=== PATIENT | male | born 1965 | race Two or more races ===

== ENCOUNTER 2016-12-17 18:24 | Emergency (ER) | payer MEDICAID, OTHER ==
[~2016-12-17] VITALS: Ht 167.6 cm; Wt 81.0 kg
[2016-12-17 18:37] VITALS: Ht 167.6 cm; Wt 81.0 kg
--- NOTE | 2016-12-17 19:45 | ERD ---
ER Documentation Chief Complaint Date/Time DATE: 12/17/16 TIME: 19:39 Chief Complaint throat pain x 3 days HPI This is a 51 year male presents to ER with sore throat x 3 days. No difficulty swallowing or drooling. No muffled voice. No cough. No nasal congestion or rhinitis. No fever or chills. No sick contacts. ROS All systems reviewed and are negative except as per history of present illness. Medications Home Meds Active Scripts Ibuprofen* (Motrin*) 400 Mg Tab, 400 MG PO Q6, #15 TAB Prov:DEREJE LIU Homer HERNANDEZ 12/17/16 Allergies Allergies: Coded Allergies: No Known Drug Allergy (Verified Allergy, Unknown, 04/08/09) PMhx/Soc History of Surgery: No Anesthesia Reaction: No Hx Neurological Disorder: No Hx Respiratory Disorders: No Hx Cardiac Disorders: No Hx Psychiatric Problems: No Hx Miscellaneous Medical Probl: No Hx Alcohol Use: No Hx Substance Use: No Hx Tobacco Use: No Smoking Status: Never smoker Physical Exam Vitals Vital Signs Date Time Temp Pulse Resp B/P Pulse Ox O2 Delivery O2 Flow Rate FiO2 12/17/16 21:38 97.5 51 18 165/77 98 Room Air 12/17/16 18:37 97.5 66 20 166/79 98 Physical Exam Const: No acute distress, alert Head: Atraumatic Eyes: Normal Conjunctiva ENT: Normal External Ears, Nose and Mouth. No erythema or exudate to posterior pharynx. TMs normal bilaterally. Neck: Full range of motion..~ No meningismus. Resp: Clear to auscultation bilaterally. No wheezing, rhonchi or crackles. No stridor or labored breathing. Cardio: Regular rate and rhythm, no murmurs Abd: Soft, non tender, non distended. Normal bowel sounds Skin: No petechiae or rashes Back: No midline or flank tenderness Ext: No cyanosis, or edema Neur: Awake and alert Psych: Normal Mood and Affect Procedures/MDM MDM: 51 year old male presents to ER with sore throat x 3 days. No exudate or erythema to posterior pharynx. No muffled voice. No difficulty swallowing or drooling. No fever or chills. No cough. Rapid strep swab is negative. No rashes or lesions Low suspicion for epiglottitis, strep pharyngitis, HSV or scarlet fever. Patient likely has viral pharyngitis. Patient is appropriate for outpatient management and will be given prescription for Ibuprofen 400 mg #15 and instructed to use warm salt water gargles for pain relief. Instructed patient to follow up with PCP in the next 2-3 days for reassessment. Return to ED for any new or worsening symptoms. Patient verbalizes understanding. All questions answered at discharge. Departure Diagnosis: Primary Impression: Sore throat Condition: Stable DEREJE LIU NP Dec 17, 2016 19:44
[2016-12-17] MEDS ORDERED: IBUP400T22 PO (21:21)
[2016-12-17 21:38] VITALS: BP 165/77; PULSE 51; RESP 18; TEMP 97.5
== END 2016-12-17 21:40 | disposition home or self-care (01) ==
LOC: FTE 18:24
DX: J02.9 Acute pharyngitis, unspecified (principal)
CPT/HCPCS: 87880; 99283

== ENCOUNTER 2017-01-09 06:47 | Day surgery (SDC) | payer MEDICAID, OTHER ==
[2017-01-09] VITALS (13 sets, daily range): BP systolic 139–166; BP diastolic 59–85; PULSE 55–80; RESP 11–24; Ht 175.3 cm; Wt 78.0 kg
[~2017-01-09] VITALS: Ht 175.3 cm; Wt 78.0 kg
[~2017-01-09 06:47] MED LIST: IBUP400T22 PO
[2017-01-09] MEDS ORDERED: BALANCED SALT SOLN 15 ML OPH IRRIG ONE (07:00)
[2017-01-09] MEDS ORDERED: MITOMYCIN OP ONE (07:00)
[2017-01-09] MEDS ORDERED: LISI40TA9 PO (07:57)
[2017-01-09] MEDS ORDERED: SIMV10TA PO (07:57)
[2017-01-09] MEDS ORDERED: AMLO5TAB4 PO (07:57)
[2017-01-09] MEDS ORDERED: CYCL-319 PO (07:58)
[2017-01-09] MEDS ORDERED: PHENYLephrine 10% 5 ML OPH ONE (08:29)
[2017-01-09] MEDS ORDERED: TOBRAMYCIN/DEXAMETH 3.5 GM OPH OINT ONE (08:29)
[2017-01-09] MEDS ORDERED: METHYLENE BLUE 1% 10 ML INJ ONE (08:30)
[2017-01-09] MEDS ORDERED: TETRACAINE 0.5% 4 ML OPH ONE (08:30)
[2017-01-09] MEDS ORDERED: LIDOCAINE 2%/EPI MPF (SDV) 20 ML VIAL INJ ONE (08:30)
[2017-01-09] MEDS ORDERED: LIDOCAINE 2%/EPI 30 ML INJ ONE (08:31)
--- NOTE | 2017-01-09 08:41 | HPN ---
Date/Time of Note Date/Time of Note DATE: 01/09/17 TIME: 08:40 Interval H&P Admission Note Pt. seen H&P reviewed: No system changes TALISHA CAMARA MD Jan 09, 2017 08:41
[2017-01-09] MEDS ORDERED: MIDAZOLAM 1 MG/ML 2 ML INJ ONE (08:42)
[2017-01-09] MEDS ORDERED: LIDOCAINE 2% (SDV) 5 ML INJ ONE (08:42)
[2017-01-09] MEDS ORDERED: PROPOFOL 20 ML ONE (08:42)
[2017-01-09] MEDS ORDERED: FENTAnyl 50 MCG/ML VIAL ONE (08:42)
[2017-01-09] MEDS ORDERED: PHENYLephrine 10% 5 ML OPH LEFT EYE ONE (08:45)
[2017-01-09] MEDS ORDERED: hydrALAzine 20 MG INJ ONE (09:01)
[2017-01-09] MEDS ORDERED: TOBRAMYCIN/DEXAMETH 3.5 GM OPH OINT LEFT EYE ONE (09:14)
[2017-01-09] MEDS ORDERED: ONDANSETRON 4 MG INJ IV PRN (09:30)
[2017-01-09] MEDS ORDERED: PROCHLORPERAZINE 10 MG INJ IV PRN (09:30)
[2017-01-09] MEDS ORDERED: MEPERIDINE 25 MG INJ IV PRN (09:30)
[2017-01-09] MEDS ORDERED: DIPHENHYDRAMINE 50 MG INJ IV PRN (09:30)
[2017-01-09] MEDS ORDERED: HYDROmorphONE (0.2 MG/ML) 10ML SYG IV PRN (09:30)
[2017-01-09] MEDS ORDERED: FENTAnyl 50 MCG/ML VIAL IV PRN (09:30)
[2017-01-09] MEDS ORDERED: OXYCODONE/ACETAMINOPHEN (5/325) TAB PO PRN ×2 (09:30)
--- NOTE | 2017-01-09 09:58 | OPR ---
Date/Time of Note Date/Time of Note DATE: 01/09/17 TIME: 09:57 Operative Report Preoperative Diagnosis pterygium of left eye Postoperative Diagnosis same Operation/Procedure Performed excision of pterygium Surgeon: TALISHA CAMARA MD Transfusion Required: no Specimen: none Grafts/Implants: none Complications: no TALISHA CAMARA MD Jan 09, 2017 09:58
[2017-01-09] MEDS ORDERED: hydrALAzine 20 MG INJ IV PRN (10:00)
--- NOTE | 2017-01-09 11:49 | OPR ---
DATE OF OPERATION: 01/09/2017 SURGEON: Darshana Altman MD [employer] CLERK: None. ANESTHESIOLOGIST: PREOPERATIVE DIAGNOSIS: Pterygium, left eye. POSTOPERATIVE DIAGNOSIS: Pterygium, left eye. OPERATION: Excision of pterygium, left eye; application of mitomycin C; closure of defect with conjunctival advancement flaps. DESCRIPTION OF PROCEDURE: Following standard preparation and draping of the patient, a solid-blade lid speculum was placed for immobilization of the lids. A small amount of 2% Xylocaine with epinephrine was injected beneath the body of the pterygium so as to elevate it from the underlying sclerae. After adequate local anesthesia was obtained, Arnol scissors were simply used to make an incision along the edges of the pterygium, amputating the body approximately 1 cm posterior to the limbus. At the limbus, the major portion of the tissue was simply excised using sharp scissors. Using a rotating lasha bur, all of the scar tissue on the cornea was removed down to clear cornea. At this point, bleeding points were secured with the heat cautery. Mitomycin C (0.2 mg/ml) was now applied to the limbal regions for three minutes. After three minutes, the eye was copiously irrigated with balanced salt solution. A peritomy was now performed both superiorly and inferiorly and relaxing incisions made at approximately the 6 and 12 o'clock positions. The undermining conjunctiva was now pulled both superiorly and inferiorly so as to close the previously made defect from which the pterygium had been removed. Sutures of interrupted 8-0 Vicryl were used and a bite of the underlying sclera was taken so as to ensure adequate maintenance of the flaps in a nonmovable position. Betadine 5% solution was placed on the eye, along with TobraDex ointment. A light pressure dressing was applied, and the patient returned to the recovery room in satisfactory condition. Dictated By: Darshana Altman MD /scott/bethel /Document#: [id number]
== END 2017-01-09 11:50 | disposition home or self-care (01) ==
LOC: SDS 06:47
PROVIDERS: ATTEND Ophthalmology
DX: H11.002 Unspecified pterygium of left eye (principal); I10 Essential (primary) hypertension; E78.5 Hyperlipidemia, unspecified
CPT/HCPCS: 65426; J0360; J2250; J3010; J9280; Z7512; Z7610